=== PATIENT | male | born 1950 | race Caucasian/White ===

== ENCOUNTER → 2017-05-03 | Outpatient (REF) | payer MEDICARE, OTHER | LOC: M LAB REF 08:24 | DX: C44.519 Basal cell carcinoma of skin of other part of trunk (principal); C44.619 Basal cell carcinoma of skin of left upper limb, including shoulder | CPT/HCPCS: 88305 ==

== ENCOUNTER → 2021-05-31 | Outpatient (REF) | payer MEDICARE, OTHER | LOC: M SFHCDERM 14:46 | PROVIDERS: ATTEND Dermatology | DX: D22.21 Melanocytic nevi of right ear and external auricular canal (principal) ==